=== PATIENT | female | born 1960 | race Caucasian/White ===

== ENCOUNTER 2016-09-01 10:10 | Emergency (ER) | payer BC ==
[2016-09-01 13:07] LABS: RED BLOOD COUNT 4.62 M/UL (4.00-5.10); WHITE BLOOD COUNT 12.2 K/UL (4.5-11.0)
[2016-09-01 13:31] LABS: BUN/CREATININE RATIO 31 (0-10)
== END 2016-09-01 16:47 | disposition home or self-care (01) ==
LOC: ER1 10:10
PROVIDERS: Emergency Medicine
DX: N20.1 Calculus of ureter (principal); Z88.8 Allergy status to other drugs, medicaments and biological substances; Z79.899 Other long term (current) drug therapy
CPT/HCPCS: 36415; 80053; 81001; 82150; 83690; 85025; 96374; 96375; 99284; J1885; J2270; J2405